=== PATIENT | male | born 2005 | race Caucasian/White ===

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

== ENCOUNTER 2025-08-10 12:29 | Emergency (ER) | payer OTHER ==
[~2025-08-10] VITALS: Ht 188 cm; Wt 106.8 kg
[~2025-08-10 12:29] MED LIST changes: +CEFD1CAP9 PO; +CIPR0.3S37 AD
[2025-08-10] MEDS ORDERED: CIPR7.5D2 AD (14:55)
[2025-08-10 15:20] VITALS: BP 134/85; TEMP 98.4; O2SAT 99
== END 2025-08-10 15:21 | disposition home or self-care (01) ==
LOC: M ED 12:29
DX: H60.331 Swimmer's ear, right ear (principal); Z79.2 Long term (current) use of antibiotics; Z88.0 Allergy status to penicillin; Z88.2 Allergy status to sulfonamides

== ENCOUNTER 2025-08-23 10:15 | Emergency (ER) | payer OTHER ==
[~2025-08-23] VITALS: Ht 188 cm; Wt 113.7 kg
[~2025-08-23 10:15] MED LIST changes: +CIPR7.5D2 AD
[2025-08-23] MEDS ORDERED: NEOM1SUS10 (10:28)
[2025-08-23] MEDS ORDERED: CLIN-250 (10:28)
[2025-08-23 13:39] LABS: BASO # 0.1 10^3/uL (0.0-0.2); BASO % 0.9 % (0.0-1.0); EOS # 0.2 10^3/uL (0.0-0.5); EOS % 4.3 % (0.0-3.0); LYMPH # 1.6 10^3/uL (1.5-5.0); LYMPH % 28.7 % (24.0-44.0); MONO # 0.5 10^3/uL (0.0-0.8); MONO % 9.1 % (2.0-8.0); NEUTROPHILS # 3.2 10^3/uL (1.5-8.5); NEUTROPHILS % 56.6 % (36.0-66.0); PLATELET COUNT, AUTOMATED 208 10^3/uL (150-450)
[2025-08-23 14:11] LABS: ALT/SGPT 42 U/L (7.0-40); AST/SGOT 28 U/L (<34); CALCIUM LEVEL 9.6 MG/DL (8.5-10.1); CARBON DIOXIDE LEVEL 27 MMOL/L (20-31); CHLORIDE LEVEL 102 MMOL/L (98-107); CREATININE FOR GFR 0.72 MG/DL (0.70-1.30); GLOMERULAR FILTRATION RATE > 90.0 (>60); POTASSIUM SERUM 4.1 MMOL/L (3.5-5.1); SODIUM LEVEL 140 MMOL/L (136-145)
[2025-08-23 15:37] VITALS: BP 140/81; TEMP 97.5; O2SAT 99
== END 2025-08-23 15:51 | disposition home or self-care (01) ==
LOC: M ED 10:15
DX: H92.11 Otorrhea, right ear (principal); Z88.0 Allergy status to penicillin; Z88.2 Allergy status to sulfonamides; Z79.2 Long term (current) use of antibiotics